=== PATIENT | female | born 1995 | race Caucasian/White ===

== ENCOUNTER 2017-05-12 17:30 | Emergency (ER) | payer BC ==
[~2017-05-12] VITALS: Ht 157.5 cm; Wt 58.1 kg
[~2017-05-12 17:30] MED LIST: FLEXERIL PO; IBUPROFEN 600600 M1 PO; NAPROSYN250 MG PO; NOHOMEMEDICATIONS; NORCO 5-325 TA1 EACH PO; ROBAXIN500 MG PO; TOBREX5 ML OP; ZOFRAN 4 MG ORAL4 MG PO
[2017-05-12] MEDS ORDERED: HEATHER0.35 MG PO (17:36)
[2017-05-12] MEDS ORDERED: SEROQUEL 25 MG25 M1 PO (17:36)
[2017-05-12] MEDS ORDERED: SERTRALINE HCL50 MG PO (17:37)
[2017-05-12 18:11] LABS: URINE BILIRUBIN NEGATIVE (Negative); URINE BLOOD NEGATIVE (Negative); URINE CLARITY CLEAR; URINE COLOR YELLOW; URINE GLUCOSE-RANDOM NEGATIVE (Negative); URINE KETONES NEGATIVE (Negative); URINE LEUKOCYTES-REFLEX NEGATIVE (Negative); URINE NITRITE-REFLEX NEGATIVE (Negative); URINE PROTEIN NEGATIVE (Negative); URINE UROBILINOGEN 0.2 E.U./dl (0.2-1.0)
[2017-05-12] MEDS ORDERED: TESSALON PERLE100 MG PO (20:13)
[2017-05-12 20:33] VITALS: BP 104/64
== END 2017-05-12 20:38 | disposition home or self-care (01) ==
LOC: M.ERS 17:30
PROVIDERS: Physician Assistant
DX: J06.9 Acute upper respiratory infection, unspecified (principal); Z88.1 Allergy status to other antibiotic agents; Z98.890 Other specified postprocedural states